=== PATIENT | female | born 1990 | race Caucasian/White ===

== ENCOUNTER 2020-09-21 23:20 | Emergency (ER) | payer OTHER ==
[~2020-09-21 23:20] MED LIST: AMLODIPINE BESYL5 MG PO; AZITHROMYCIN500 MG PO; BACTRIM DS TAB1 EACH PO; BUSPIRONE HCL5 MG PO; BUTALB-ACETAMI1 EAC1 PO; ELAVIL 50 MG TA50 MG PO; FEMARA2.5 MG PO; IBUPROFEN600 MG PO; KEFLEX CAP 500500 MG PO; KLONOPIN TAB 00.5 MG PO; LOPRESSOR 25 MG25 MG PO; MACROBID 100 M100 MG PO; NAPROSYN500 MG PO; NORCO 5-325 TA1 EACH PO; OMEPRAZOLE40 MG PO; OMNICEF 300 MG300 MG PO; PROVERA10 MG PO; PROZAC 20 MG CA20 MG PO; PROZAC10 MG PO; TORADOL 10 MG T10 MG PO; ZITHROMAX250 MG PO; ZOFRAN ODT 4 MG4 MG SL; ZOFRAN4 MG PO
[2020-09-22 00:37] LABS: HEMOGLOBIN 13.2 gm/dl (12.3-15.3); RED BLOOD COUNT 4.65 M/UL (4.00-5.10); WHITE BLOOD COUNT 9.3 K/UL (4.5-11.0)
[2020-09-22 01:08] LABS: BUN/CREATININE RATIO 20 (0-10)
== END 2020-09-22 04:40 | disposition home or self-care (01) ==
LOC: ER1 23:20
PROVIDERS: Family Medicine
DX: I10 Essential (primary) hypertension (principal); R00.0 Tachycardia, unspecified; F41.0 Panic disorder [episodic paroxysmal anxiety]; Z79.899 Other long term (current) drug therapy
CPT/HCPCS: 71045; 80053; 82550; 82553; 83874; 84439; 84443; 84484; 85025; 93005; 96374; 96376; 99284

== ENCOUNTER → 2020-10-20 | Outpatient (CLI) | payer OTHER | LOC: CT 10-09 11:30 | DX: K76.9 Liver disease, unspecified (principal) | CPT/HCPCS: 74170; Q9967 ==

== ENCOUNTER 2021-02-09 14:54 | Emergency (ER) | payer OTHER ==
[2021-02-09 18:05] LABS: HEMOGLOBIN 13.7 gm/dl (12.3-15.3); RED BLOOD COUNT 4.76 M/UL (4.00-5.10); WHITE BLOOD COUNT 9.7 K/UL (4.5-11.0)
[2021-02-09 18:26] LABS: BUN/CREATININE RATIO 19 (0-10)
[2021-02-09] MEDS ORDERED: MACROBID 100 M100 MG PO (20:08)
[2021-02-09] MEDS ORDERED: ZOFRAN ODT 4 MG4 MG SL (20:08)
== END 2021-02-09 21:00 | disposition home or self-care (01) ==
LOC: ER1 14:54
PROVIDERS: Emergency Medicine
DX: K92.1 Melena (principal); N39.0 Urinary tract infection, site not specified; I10 Essential (primary) hypertension; F17.200 Nicotine dependence, unspecified, uncomplicated
CPT/HCPCS: 80053; 81001; 82272; 83605; 83690; 84703; 85025; 85610; 85730; 96374; 96375; 99284; J2405; J7030; Q9967

== ENCOUNTER 2021-05-04 13:36 | Emergency (ER) | payer OTHER ==
[2021-05-04 14:24] LABS: HEMOGLOBIN 13.2 gm/dl (12.3-15.3); RED BLOOD COUNT 4.54 M/UL (4.00-5.10); WHITE BLOOD COUNT 10.1 K/UL (4.5-11.0)
[2021-05-04 16:09] LABS: BUN/CREATININE RATIO 15 (0-10)
[2021-05-04] MEDS ORDERED: LODINE CAP 300300 MG PO (21:35)
== END 2021-05-04 22:10 | disposition home or self-care (01) ==
LOC: ER1 13:36
PROVIDERS: Physician Assistant Medical
DX: H57.13 Ocular pain, bilateral (principal); I11.9 Hypertensive heart disease without heart failure
CPT/HCPCS: 70450; 80053; 85025; 85652; 86140; 99284

== ENCOUNTER 2021-09-05 16:32 | Emergency (ER) | payer OTHER ==
[~2021-09-05 16:32] MED LIST changes: +LODINE CAP 300300 MG PO
[2021-09-05 18:18] LABS: HEMOGLOBIN 11.4 gm/dl (12.3-15.3); RED BLOOD COUNT 4.08 M/UL (4.00-5.10); WHITE BLOOD COUNT 9.8 K/UL (4.5-11.0)
[2021-09-05 18:49] LABS: BUN/CREATININE RATIO 16 (0-10)
== END 2021-09-05 22:45 | disposition home or self-care (01) ==
LOC: ER1 16:32
PROVIDERS: Physician Assistant
DX: G89.18 Other acute postprocedural pain (principal); R10.9 Unspecified abdominal pain
CPT/HCPCS: 80053; 81001; 84703; 85025; 87086; 96374; 99284; J1885; J7030; Q9967

== ENCOUNTER 2022-03-17 16:00 | Emergency (ER) | payer OTHER ==
[~2022-03-17 16:00] MED LIST changes: +CEPHALEXIN500 M1 PO; +ONDANSETRON ODT4 MG SL; +PYRIDIUM200 MG PO
[2022-03-17 16:39] LABS: RED BLOOD COUNT 4.51 M/UL (4.00-5.10); WHITE BLOOD COUNT 9.3 K/UL (4.5-11.0)
[2022-03-17 17:07] LABS: BUN/CREATININE RATIO 16 (0-10)
[2022-03-17] MEDS ORDERED: OMNICEF 300 MG300 MG PO (18:18)
== END 2022-03-17 19:17 | disposition home or self-care (01) ==
LOC: ER1 16:00
PROVIDERS: Student in an Organized Health Care Education/Training Program
DX: R00.2 Palpitations (principal); N39.0 Urinary tract infection, site not specified; I10 Essential (primary) hypertension; R00.0 Tachycardia, unspecified
CPT/HCPCS: 71045; 80053; 81001; 82550; 82553; 84439; 84443; 84484; 84703; 85025; 85379; 93005; 99285; J0696; J0780

== ENCOUNTER 2022-03-21 17:22 | Emergency (ER) | payer OTHER ==
[2022-03-21 18:06] LABS: HEMOGLOBIN 12.5 gm/dl (12.3-15.3); RED BLOOD COUNT 4.4 M/UL (4.00-5.10); WHITE BLOOD COUNT 8.7 K/UL (4.5-11.0)
[2022-03-21 18:31] LABS: BUN/CREATININE RATIO 15 (0-10)
== END 2022-03-21 21:01 | disposition home or self-care (01) ==
LOC: ER1 17:22
PROVIDERS: Physician Assistant Medical
DX: R07.9 Chest pain, unspecified (principal); R00.2 Palpitations; R11.2 Nausea with vomiting, unspecified
CPT/HCPCS: 71045; 80053; 81001; 82550; 82553; 83605; 84484; 85025; 93005; 96360; 99285; U0002

== ENCOUNTER 2022-05-04 13:31 | Emergency (ER) | payer OTHER ==
[2022-05-04] MEDS ORDERED: ZOFRAN 4 MG TAB4 MG PO (15:16)
== END 2022-05-04 16:52 | disposition home or self-care (01) ==
LOC: ER1 13:31
DX: U07.1 COVID-19 (principal); E11.9 Type 2 diabetes mellitus without complications; I10 Essential (primary) hypertension
CPT/HCPCS: 71045; 99284